=== PATIENT | female | born 1950 | race Caucasian/White ===

== ENCOUNTER → 2021-10-26 00:27 | Outpatient (CLI) | payer OTHER, SELFPAY ==
[2021-10-26 12:16] LABS: SARS-CoV-2 RNA PCR Negative
== END ==
PROVIDERS: PCP Internal Medicine; Visit Provider Internal Medicine Gastroenterology
DX: Z01.812 Encounter for preprocedural laboratory examination (principal); Z20.822 Contact with and (suspected) exposure to COVID-19
CPT/HCPCS: C9803; U0003; U0005

== ENCOUNTER 2021-10-29 00:03 | Day surgery (SDC) | payer OTHER, SELFPAY ==
[2021-10-17 13:10] VITALS: BMI 29.0
[2021-10-29 06:12] VITALS: BP 136/89; PULSE 98; RESP 18; TEMP 36.2; O2SAT 99; BMI 28.0
[2021-10-29] MEDS: LACTATED RINGERS 1,000 ML 150 ML IV CONT (06:29)
--- NOTE | 2021-10-29 07:08 | P.PNAN_ITS ---
Anes - Initial Pre Proc Eval Procedure: Operation Date: 10/29/21 07:30 Proposed Procedures p Colonoscopy - Jesus Munguia MD Date/Time: 10/29/21 07:08 Surgeon: Jesus Munguia MD Pre Op Diagnosis: hematochezia, PRISCILLA Patient Data Age: 71 Gender: F Height: 1.7 m Weight: 81.4 kg Last Vital Signs Temp 36.2 C L 10/29/21 06:12 Pulse 98 10/29/21 06:12 Resp 18 10/29/21 06:12 BP 136/89 10/29/21 06:12 Pulse Ox 99 10/29/21 06:12 Allergies Allergy/AdvReac Type Severity Reaction Status Date / Time latex Allergy Unknown Hives Verified 10/29/21 06:20 Home Medications Medication Instructions Recorded Confirmed Type hydrochlorothiazide 12.5 mg PO DAILY 10/17/21 10/29/21 History levothyroxine 75 mcg PO DAILY 10/17/21 10/29/21 History metoprolol succinate 100 mg PO DAILY 10/17/21 10/29/21 History Patient hx anesthesia problems: none Family hx anesthesia problems: none Results Review: All pre-operative results and documents have been reviewed as part of the pre-operative evaluation. REPLACED BY [facility] Past Medical History Medical History Hx of migraines Hypertension Hypothyroid Social History Social History Smoking status: Never smoker Alcohol intake: never Substance use: never Substance use type: does not use Living arrangements: with family Spiritual care concerns: No Anes - Eval Final PreProcedure Day of Procedure 10/29/21 07:08 Patient weight: overweight Heart: regular rate and rhythm Lungs: clear to auscultation Airway: Mallampati scale class II Neurological: alert and oriented Last oral intake: >/= 8 hours ASA classification: III Emergent: no Anesthetic plan: proceed Anesthesia type and monitoring: general GIVS and standard monitoring Results Review: All pre-operative results and documents have been reviewed as part of the pre-operative evaluation. Informed Consent: The patient's anesthetic plan and its attendant risks and benefits were discussed with the patient/family/POA. Questions were solicited and answers provided to the satisfaction of the patient/family/POA.
--- NOTE | 2021-10-29 07:22 | PM.HPGS ---
History of Present Illness History of Present Illness Consent: Risks, benefits, and alternatives have been discussed and questions answered. Patient agrees to proceed with procedure. Chief complaint: hematochezia, PRISCILLA Narrative: Lana Key is a 71 year old female here for first colonoscopy, found to have anemia with hb ~ 10 and also blood in stools. Review of Systems Constitutional: Constitutional: Denies headache(s) and Denies weakness Eyes: Eyes: Denies blurry vision ENT: Reports Normal hearing present, Denies headache(s) and Denies neck pain Cardiovascular: Cardiovascular: Denies chest pain and Denies dyspnea Respiratory: Respiratory: Denies dyspnea Gastrointestinal: Gastrointestinal: Reports no additional gastrointestinal complaints Genitourinary: Genitourinary: Denies dysuria Musculoskeletal: Musculoskeletal: Denies neck pain Integumentary/Breasts: Skin/Breast: Denies dry skin Neurologic: Reports Normal hearing present, Denies headache(s) and Denies weakness Psychiatric: Psychiatric: Denies anxiety Endocrine: Endocrine: Denies change in body appearance Hematologic/Lymphatic: Hematologic/Lymphatic: Denies easy bleeding Allergic/Immunologic: Allergic/Immunologic: Denies urticaria PMFSH Past Medical History Medical History (Updated 10/29/21 @ 07:23 by Jesus Munguia MD) Hematochezia Hx of migraines Hypertension Hypothyroid Iron deficiency anemia Social History Social History Smoking status: Never smoker Alcohol intake: never Substance use: never Substance use type: does not use Living arrangements: with family Spiritual care concerns: No Meds Home Medications and Allergies Home Medications Medication Instructions Recorded Confirmed Type hydrochlorothiazide 12.5 mg PO DAILY 10/17/21 10/29/21 History levothyroxine 75 mcg PO DAILY 10/17/21 10/29/21 History metoprolol succinate 100 mg PO DAILY 10/17/21 10/29/21 History Allergies Allergy/AdvReac Type Severity Reaction Status Date / Time latex Allergy Unknown Hives Verified 10/29/21 06:20 Vital Signs Vital Signs - 24 hr 10/29/21 06:12 Temperature 97.2 F L Pulse Rate 98 Respiratory Rate 18 Blood Pressure 136/89 Pulse Oximetry 99 Exam Const: General: comfortable and no acute distress HENMT: General nose exam: Normal nares present Eyes: General: appearance normal, both eyes and all related structures Neck: Neck: no JVD Resp: Auscultation: clear to auscultation bilaterally Cardio: Rate: regular rate Rhythm: regular rhythm GI: Inspection: non-distended GI Palp: Yes Soft to palpation Skin: General skin exam: normal color Neuro: General: gait normal Speech: normal speech Extrem: General: normal to inspection Psych: Mental Status: mental status grossly normal Assessment and Plan Assessment and plan (1) Hematochezia: Code(s): K92.1 - Melena Status: Acute Assessment and Plan: will proceed with colonoscopy (2) Iron deficiency anemia: Code(s): D50.9 - Iron deficiency anemia, unspecified Status: Acute
[2021-10-29 07:53] VITALS: BP 115/72; PULSE 71; RESP 16; O2SAT 95
[2021-10-29 08:03] VITALS: BP 108/73; PULSE 71; RESP 18; O2SAT 99
[2021-10-29 08:13] VITALS: BP 120/75; PULSE 76; RESP 20; O2SAT 99
--- NOTE | 2021-10-29 10:56 | SUR.PHASEII ---
Dr. Edin Newby office phone number and Scheduling number, for CT scan, provided to patient with discharge instructions.
== END 2021-10-29 08:32 | disposition home or self-care (01) ==
PROVIDERS: PCP Internal Medicine; Visit Provider Internal Medicine Gastroenterology
PROC: 0DJD8ZZ Inspection of Lower Intestinal Tract, Via Natural or Artificial Opening Endoscopic (ICD-10-PCS; CPT 45378; principal; 2021-10-29 07:30)
DX: K92.1 Melena (principal); C19 Malignant neoplasm of rectosigmoid junction; D50.9 Iron deficiency anemia, unspecified; I10 Essential (primary) hypertension; E03.9 Hypothyroidism, unspecified
CPT/HCPCS: 45380; 88305; C9803; J2704; J7120; U0003; U0005

== ENCOUNTER 2021-10-31 13:12 | Outpatient (CLI) | payer OTHER, SELFPAY ==
--- NOTE | ~2021-10-31 | CT_ITS ---
EXAMINATION: CT abdomen pelvis w con EXAM DATE: 10/31/2021 13:39 INDICATION: K62.89 - Other specified diseases of anus and rectum . Mass near rectum on colonoscopy. C olon cancer. TECHNIQUE: Spiral CT of the abdomen and pelvis was performed following intravenous injection of 100 m L Omnipaque 350. Axial, coronal and sagittal images of the abdomen and pelvis were reviewed. The do se-length product (DLP) for this examination was 504.24 mGy-cm. The exposure was tailored according to patient size (auto mA exposure control), and iterative reconstruction (ASIR) was used as additiona l dose reduction technique. There is no prior study for comparison. FINDINGS: There is right liver lobe lesion with incomplete peripheral nodular enhancement consistent with hemangioma measuring 2.3 cm. Adrenal glands, pancreas, spleen are unremarkable. Gallbladder is unremarkable. No biliary obstruction. Portal and splenic veins are patent. Kidneys enhance symmetr ically. There is no hydronephrosis. There is 4 mm right inferior calyceal stone. Probable bilateral renal peripelvic cysts. Punctate left nephrolithiasis. The uterus is anteverted and morphologically normal. The bladder is unremarkable. There is rectal mass measuring 6.6 cm in diameter. There are several round adjacent lymph nodes (see axial image 133). Largest of these measures 1.2 cm. There are some other lymph nodes higher up. The a ppendix is normal. There is small sliding gastroesophageal hiatal hernia. There is expected amount of colonic stool. No free intraperitoneal gas. The heart is normal in size. There are no pericar dial or pleural effusions. Left lower lobe calcified granuloma. There are no osteoblastic or osteol ytic lesions identified. IMPRESSION: 1. Rectal malignancy and adjacent, deep pelvic metastatic lymphadenopathy. 2. Bilateral nephrolithiasis. 3. Liver hemangioma. 4. Small hiatal hernia. Reviewed, dictated and finalized at location G.
[2021-10-31 13:31] LABS: Estimated Glomerular Filt Rate > 60
[2021-10-31 14:18] LABS: Hematocrit 30.6 % (37.0-47.0); Hemoglobin 9.2 g/dL (12.0-15.0); Mean Corpuscular HGB Conc 30.1 g/dl (32-36); Mean Corpuscular Hemoglobin 22.8 pg (26-34); Mean Corpuscular Volume 75.9 fl (80-100); Platelet Count Result 403 k/mm3 (150-375); Red Blood Count 4.03 M/mm3 (4.2-5.4); Red Cell Distribution Width 15.2 % (11.5-14.5); White Blood Count 7.1 K/mm3 (4.5-10.0)
[2021-10-31 16:52] LABS: Alanine Aminotransferase 17 U/L (4-35); Alkaline Phosphatase 100 U/L (38-126); Anion Gap 8 mmol/L (8-16); Aspartate Amino Transferase 29 U/L (14-36); Bilirubin,Total 0.3 mg/dL (0.2-1.3); Blood Urea Nitrogen 15 mg/dL (7-17); Calcium 8.9 mg/dL (8.4-10.2); Carbon Dioxide 27 mmol/L (22-30); Chloride 103 mmol/L (98-107); Estimated Glomerular Filt Rate > 60; Glucose 106 mg/dL (65-110); Potassium 3.6 mmol/L (3.4-5.0); Sodium 138 mmol/L (137-145)
== END 2021-10-31 13:13 | disposition home or self-care (01) ==
LOC: ANHIMG 13:14
PROVIDERS: PCP Internal Medicine; Visit Provider Internal Medicine Gastroenterology
DX: K62.89 Other specified diseases of anus and rectum (principal); K92.1 Melena; C20 Malignant neoplasm of rectum; C77.8 Secondary and unspecified malignant neoplasm of lymph nodes of multiple regions; N20.0 Calculus of kidney; R16.0 Hepatomegaly, not elsewhere classified; K44.9 Diaphragmatic hernia without obstruction or gangrene
CPT/HCPCS: 74177; 80053; 82378; 85027; Q9967

== ENCOUNTER 2021-12-18 00:56 | Day surgery (SDC) | payer OTHER, SELFPAY ==
--- NOTE | 2021-12-13 16:13 | PC.NURSE ---
Report to the Outpatient Waiting Room, entrance under the green pavilion located off [facility], at time __0600 on date _12/18/21 . OR Time: __30 . - You and your visitor will be asked a series of questions to screen for COVID 19 for your protection. - Only one visitor is allowed at this time. - The patient visitor is requested to leave or wait in car when not with patient. - A mask is required within the hospital. Patients may have clear liquids (water, carbonated beverages, clear teas, apple juice) until 3 hours prior to surgery with a maximum of 20 ounces. - No food from midnight until time of surgery - Infants may have breast milk until 4 hours before surgery, infant formula 6 hours prior to surgery. - Children will be allowed to drink immediately following surgery. If applicable, please bring a bottle or sippy cup to assist with drinking. Juice, water, soda, and popsicles are readily available. For infants on formula, please bring formula the day of surgery. Pacifiers are allowed. Take the following medications with a SIP of water the morning of surgery: ____LEVOTHYROXINE Medications to discontinue per physician __ALL VITAMINS AND SUPPLEMENTS 3 DAYS PRE OP Date to take last dose__12/14/21 Please no make-up, nail ukrainian, hairspray, perfume, deodorant, or body powder the day of surgery. No jewelry (including any body piercings) or valuables the day of surgery, leave them at home. Please take a shower or bath the night before, or the morning of, surgery with an antibacterial soap. Wear comfortable, loose fitting clothing. Children are encouraged to wear pajamas. - Jewelry must be removed prior to entering the operating room. Rings and piercings that are not removed may be cut off. - The hospital will not accept responsibility for valuables. - Please leave all valuables, including medications, at home the day of surgery. If you are going home after surgery, a licensed tram driver must drive you home. - NO public transportation without another adult. - We recommend that an adult stay with you for 24 hours following discharge. - We also recommend that you do not drive, make important decision, drink alcoholic beverages, or take any drugs that were not prescribed by your health care provider for at least 24 hours after your discharge time. For Pediatric surgeries, we recommend two adults accompany the child home (only one inside the building at this time). Follow any additional instructions given to you from your surgeon. If you or anyone in your household have experienced Covid symptoms in the past week, please notify your surgeon or the nurse liaison at the phone number below for possible testing. Telephone instructions given to __PATIENT and asked if any additional questions and then verbalized understanding. Patient advised to call surgeon office or pre surgery nurse liaison [phone] if any additional questions.
[2021-12-13 16:15] VITALS: BMI 27.2
--- NOTE | ~2021-12-18 | XR_ITS ---
XR chest port-a-cath/central DATE: 12/18/2021 08:32 INDICATION: Port-A-Cath placement, postoperative TECHNIQUE: Portable AP chest on 12/18/2021 at 0829 hours COMPARISON: None FINDINGS: Left subclavian Port-A-Cath catheter, tip overlying superior vena cava. No left pneumothora x pleural effusion. No pulmonary infiltrate or consolidation. Heart size appears within normal limits. Is aortic calcific ation and tortuosity. Diffuse osteopenia. IMPRESSION: Left subclavian Port-A-Cath catheter tip overlying superior vena cava No active cardiac pulmonary disease or pneumothorax Aortic atherosclerosis Reviewed, dictated and finalized at Location [facility]. Reviewed, dictated and finalized at location B. IMPRESSION: Left subclavian Port-A-Cath catheter tip overlying superior vena ca va No active cardiac pulmonary disease or pneumothorax Aortic atherosclerosis
--- NOTE | ~2021-12-18 | XR_ITS ---
EXAMINATION: XR fl guide central line place INDICATION: Port-A-Cath insertion TECHNIQUE: Three intraoperative fluoroscopic images are submitted for review. Total fluoroscopic time was 18.5 seconds. COMPARISON: None available FINDINGS: Fluoroscopic images demonstrate a left subclavian Port-A-Cath. The tip is followed as far a s the distal superior vena cava. Please refer to procedure note for full details. IMPRESSION: 1. Left subclavian Port-A-Cath insertion. Reviewed, dictated and finalized at location A.
[2021-12-18 06:09] VITALS: BP 128/79; PULSE 72; RESP 20; TEMP 36.1; O2SAT 97
--- NOTE | 2021-12-18 06:43 | P.PNAN_ITS ---
Anes - Initial Pre Proc Eval Procedure: Operation Date: 12/18/21 07:30 Proposed Procedures p Insertion Kimberley Cath - Leah Laurent MD Date/Time: 12/18/21 06:43 Surgeon: Leah Laurent MD Pre Op Diagnosis: rectal CA Patient Data Age: 71 Gender: F Height: 1.7 m Weight: 78.99 kg Allergies Allergy/AdvReac Type Severity Reaction Status Date / Time latex Allergy Unknown Hives Verified 12/13/21 15:58 Home Medications Medication Instructions Recorded Confirmed Type hydrochlorothiazide 12.5 mg PO DAILY 10/17/21 12/13/21 History levothyroxine 75 mcg PO DAILY 10/17/21 12/13/21 History metoprolol succinate 100 mg PO QPM 10/17/21 12/13/21 History ascorbic acid (vitamin C) 250 mg PO DAILY 12/13/21 12/13/21 History cholecalciferol (vitamin D3) 50 mcg PO DAILY 12/13/21 12/13/21 History cyanocobalamin (vitamin B-12) 1,000 mcg PO DAILY 12/13/21 12/13/21 History ferrous sulfate 325 mg PO DAILY 12/13/21 12/13/21 History multivitamin [Multi-Vitamin] 1 tablet PO DAILY 12/13/21 12/13/21 History Patient hx anesthesia problems: none Family hx anesthesia problems: none Results Review: All pre-operative results and documents have been reviewed as part of the pre-operative evaluation. [facility] Past Medical History Medical History Hematochezia Hx of migraines Hypertension Hypothyroid Iron deficiency anemia Rectal mass Surgical History Surgical History (Updated 12/18/21 @ 06:44 by Adrián Pal MD) H/O arthroscopic knee surgery H/O colonoscopy History of carpal tunnel surgery History of shoulder surgery Social History Social History Smoking status: Never smoker Alcohol intake: never Substance use: never Substance use type: does not use Living arrangements: with family Spiritual care concerns: No Anes - Eval Final PreProcedure Day of Procedure 12/18/21 06:43 Patient weight: overweight Heart: regular rate and rhythm Lungs: clear to auscultation Airway: Mallampati scale class II Neurological: alert and oriented Last oral intake: >/= 8 hours ASA classification: III Emergent: no Anesthetic plan: proceed Anesthesia type and monitoring: general GIVS and standard monitoring Results Review: All pre-operative results and documents have been reviewed as part of the pre-operative evaluation. Informed Consent: The patient's anesthetic plan and its attendant risks and benefits were discussed with the patient/family/POA. Questions were solicited and answers provided to the satisfaction of the patient/family/POA.
[2021-12-18] MEDS: LACTATED RINGERS 1,000 ML 30 ML IV CONT (06:55)
[2021-12-18] MEDS: KETOROLAC 15 MG/ML VIAL (*BKC) IV PUSH (07:07)
--- NOTE | 2021-12-18 07:27 | PM.IMHP ---
H&P: HPI History of Present Illness Date/Time: 12/18/21 07:27 Pt is a 71 y/o F c rectal cancer. Pt here for VAD placement. Pt denies previous central venous catheterization. Pt is right handed. Chief Complaint: rectal cancer Review of Systems Review of Systems: All systems reviewed & are unremarkable except as noted in HPI and below PMFSH Past Medical History Medical History Hematochezia Hx of migraines Hypertension Hypothyroid Iron deficiency anemia Rectal mass Surgical History Surgical History H/O arthroscopic knee surgery H/O colonoscopy History of carpal tunnel surgery History of shoulder surgery Social History Social History Smoking status: Never smoker Alcohol intake: never Substance use: never Substance use type: does not use Living arrangements: with family Spiritual care concerns: No Meds Home Medications and Allergies Home Medications Medication Instructions Recorded Confirmed Type hydrochlorothiazide 12.5 mg PO DAILY 10/17/21 12/18/21 History levothyroxine 75 mcg PO DAILY 10/17/21 12/18/21 History metoprolol succinate 100 mg PO QPM 10/17/21 12/18/21 History ascorbic acid (vitamin C) 250 mg PO DAILY 12/13/21 12/18/21 History cholecalciferol (vitamin D3) 50 mcg PO DAILY 12/13/21 12/18/21 History cyanocobalamin (vitamin B-12) 1,000 mcg PO DAILY 12/13/21 12/18/21 History ferrous sulfate 325 mg PO DAILY 12/13/21 12/18/21 History multivitamin [Multi-Vitamin] 1 tablet PO DAILY 12/13/21 12/18/21 History Allergies Allergy/AdvReac Type Severity Reaction Status Date / Time latex Allergy Unknown Hives Verified 12/18/21 06:51 Exam Const: General: cooperative, comfortable and no acute distress Nutritional Appearance: overweight Orientation/consciousness: patient oriented x3 Neck: Neck: normal visual inspection and full ROM Chest: Chest palpation & inspection: normal inspection of the chest Resp: Effort & Inspection: normal respiratory effort Auscultation: clear to auscultation bilaterally Cardio: Rate: regular rate Rhythm: regular rhythm GI: Inspection: normal to inspection GI Palp: No abdominal tenderness, Yes Soft to palpation and No Tenderness to palpation present (GI) Assessment and Plan Assessment and plan (1) Rectal cancer: Code(s): C20 - Malignant neoplasm of rectum Status: Acute Assessment and Plan: will place VAD in OR today
--- NOTE | 2021-12-18 07:30 | WPDHPUPDATE1 ---
History and Physical Update Update Date/Time: 12/18/21 07:30 History and Physical has been reviewed, including an updated exam of the patient. There are NO changes in the patient's condition. Risks, benefits, and alternatives have been discussed and questions answered. Patient agrees to proceed with procedure.
[2021-12-18 07:33] LABS: INR 1.1; Prothrombin Time 13.4 Seconds (11.1-14.7)
[2021-12-18 07:34] LABS: Partial Thromboplastin Time 24.8 SECONDS (22.3-36.8)
[2021-12-18] MEDS: HEPARIN SODIUM 5,000 UNITS/ML VIAL 5000 UNITS IRRIGATION (07:37)
[2021-12-18] MEDS: LIDO 1%/EPINEPHRINE/PF 1:200,000 30 ML VIAL 20 ML XX (07:37)
[2021-12-18] MEDS: ceFAZolin 2 GM/D5W 50 ML 2 GM/50 ML BAG IVPB (07:37)
[2021-12-18] MEDS: HEPARIN SODIUM, PORCINE 10,000 UNITS/10 ML VIAL 10000 UNITS IRRIGATION (08:10)
[2021-12-18 08:20] VITALS: BP 105/64; PULSE 67; RESP 14; O2SAT 95
--- NOTE | 2021-12-18 08:45 | W.PM.PROC2 ---
Procedure Note - Detailed Date of Procedure 12/18/21 Pre-op Diagnosis rectal CA Post-op Diagnosis Same Procedure Performed Placement of left subclavian venous access device under fluoroscopic guidance Surgeon Leah Laurent MD Anesthesia MAC and Local Indications 71 y/o F c rectal cancer necessitating access for chemotherapy Findings first stick L SCV Description of Procedure Patient was brought into the operating room and placed in the supine position. After adequate induction of mac anesthesia, the patient was prepped and draped in normal sterile fashion. Time-out was then done to verify the patient's identity, as well as the procedure being performed. I began by making a small incision in the left chest, I then gained access into the left subclavian vein with an 18 gauge needle. I then placed the guidewire into the vein and confirmed placement via fluoroscopic guidance. I then locally anesthetized the area in the left chest. I then enlarged the incision around the guidewire including making a subcutaneous pocket inferiorly to allow placement of the port itself. I then placed a dilating sheath over the guidewire into the left subclavian vein via sterile Seldinger technique. This was once again done and confirmed via fluoroscopic guidance. I then removed the dilator and the guidewire, now just leaving the sheath in the vein. I then fed the previously flushed catheter into the left subclavian vein under fluoroscopic guidance. At approximately 21 cm, the catheter was noted to be near the atrial caval junction. I then peeled away the sheath, now just leaving the catheter in the vein. I then was able to easily draw and flush from the catheter. The catheter was cut to fit and attached to the port itself. The port was placed into the previously made subcutaneous pocket and sutured in with 0 Ethibond suture. Final fluoroscopic view showed the termination of the catheter at the atrial caval junction with a nice smooth curvature back to the port itself. I was able to gain access to the port with a Harris needle and was able to easily draw and flush from the port. I then flushed 4 cc of a final heparin flush into the port. The incision was closed with 3 0 Vicryl suture in the subcutaneous tissue and the skin was closed with 4 O Monocryl subcuticular suture. Dermabond was then placed on wound. The patient tolerated the procedure well and will be sent to the recovery room in stable condition. Implants L SCV VAD Estimated Blood Loss 5 Drains No Packing No Pathology None sent Complications No immediate complications Condition Stable Disposition PACU
[2021-12-18 08:50] VITALS: BP 111/72; PULSE 72; RESP 14
[2021-12-18 09:20] VITALS: BP 107/65; PULSE 65; RESP 14
== END 2021-12-18 09:30 | disposition home or self-care (01) ==
PROVIDERS: PCP Internal Medicine; Visit Provider Surgery
PROC: (CPT 36561; principal; 2021-12-18 07:30)
DX: C20 Malignant neoplasm of rectum (principal); I10 Essential (primary) hypertension; E03.9 Hypothyroidism, unspecified; D50.9 Iron deficiency anemia, unspecified
CPT/HCPCS: 36561; 36415; 77001; 85610; 85730; C1788; J0690; J1644; J1885; J2250; J2405; J2704; J3010; J7030; J7120

== ENCOUNTER 2022-08-28 12:22 | Outpatient (CLI) | payer MEDICARE, SELFPAY ==
[2022-08-28 15:05] LABS: Anion Gap 7 mmol/L (8-16); Blood Urea Nitrogen 18 mg/dL (7-17); Calcium 9.3 mg/dL (8.4-10.2); Carbon Dioxide 30 mmol/L (22-30); Chloride 104 mmol/L (98-107); Estimated Glomerular Filt Rate > 60; Glucose 103 mg/dL (65-110); Potassium 4.1 mmol/L (3.4-5.0); Sodium 141 mmol/L (137-145)
[2022-08-28 15:21] LABS: INR 1.1; Prothrombin Time 14.1 Seconds (11.1-14.7)
[2022-08-28 15:22] LABS: Partial Thromboplastin Time 28.6 SECONDS (22.3-36.8)
== END 2022-08-28 12:23 | disposition home or self-care (01) ==
LOC: ANHSURGERY 12:25
PROVIDERS: Anesthesiology; PCP Family Medicine; Visit Provider Surgery
DX: Z51.81 Encounter for therapeutic drug level monitoring (principal); Z79.899 Other long term (current) drug therapy; Z79.01 Long term (current) use of anticoagulants
CPT/HCPCS: 36415; 80048; 85610; 85730

== ENCOUNTER 2022-09-01 00:05 | Day surgery (SDC) | payer MEDICARE, SELFPAY ==
--- NOTE | 2022-08-26 15:11 | PC.NURSE ---
PRE-OP INSTRUCTIONS, PLEASE READ CAREFULLY Report to the Outpatient Waiting Room, entrance under the green pavilion located off [facility], at time _1030_ on date _09/01/22_. Planned Procedure Time: _1230_. Time changes happen often and if your time is changed the preop area will call you the afternoon before. - You and your visitor will be asked to self-screen and do not enter if you have any COVID symptoms. - Only one visitor is requested with a max of two and NO children visitors are allowed at this time. - The patient visitor may be requested to leave or wait in car when not with patient due to distancing restrictions. - A mask is optional within the hospital. Patients may have clear liquids (water, carbonated beverages, clear teas, apple juice) until 3 hours prior to surgery (0930 AM) with a maximum of 20 ounces. - No food from midnight until time of surgery Take the following medications with a SIP of water the morning of surgery: _LEVOTHYROXINE, PAIN MED IF NEEDED_ Medications to discontinue _IBUPROFEN PER DR. FAYE'S INSTRUCTIONS_ Medications to discontinue per DR. GIL - _WARFARIN (COUMADIN) 3 DAYS PRIOR TO SURGERY, Date to take last dose 08/28/22_ Medications to discontinue per ANESTHESIA - _MULTIVITAMIN 3 DAYS PRIOR TO SURGERY, Date to take last dose 08/28/22_ Please no make-up, nail setswana, hairspray, perfume, deodorant, or body powder the day of surgery. No jewelry (including any body piercings) or valuables the day of surgery, leave them at home. Please take a shower or bath the night before, or the morning of, surgery with an antibacterial soap. Wear comfortable, loose fitting clothing. - Jewelry must be removed prior to entering the operating room. Rings and piercings that are not removed may be cut off. - The hospital will not accept responsibility for valuables. - Please leave all valuables, including medications, at home the day of surgery. If you are going home after surgery, a licensed stage driver must drive you home. - NO public transportation without another adult if you receive anesthesia. - We recommend that an adult stay with you for 24 hours following discharge. - We also recommend that you do not drive, make important decision, drink alcoholic beverages, or take any drugs that were not prescribed by your health care provider for at least 24 hours after your discharge time. Follow any additional instructions given to you from your surgeon. If you or anyone in your household have experienced Covid symptoms in the past week, please notify your surgeon or the nurse liaison at the phone number below for possible testing. Telephone instructions given to _PATIENT_and asked if any additional questions and then verbalized understanding. Patient advised to call surgeon office or pre surgery nurse liaison [phone] if any additional questions.
[2022-08-26 15:17] VITALS: BMI 27.6
--- NOTE | 2022-09-01 10:32 | PM.IMHP ---
H&P: HPI History of Present Illness Date/Time: 09/01/22 10:32 Chief Complaint: rectal cancer s/p treatment Narrative: Pt is a 71 y/o F s/p treatment of rectal cancer. Pt had L SCV VAD placed in 12/29 for access. Pt has small thrombus in SVC and has been of Eliqus. Pt otherwise has had no issues c VAD. Review of Systems Review of Systems: All systems reviewed & are unremarkable except as noted in HPI and below PMFSH Past Medical History Medical History Hematochezia History of rectal cancer Hx of migraines Hypertension Hypertension Hypothyroid Hypothyroidism Iron deficiency anemia Rectal mass Surgical History Surgical History H/O arthroscopic knee surgery H/O colonoscopy History of carpal tunnel surgery History of colon resection 07/18/22 History of shoulder surgery Family History Family History Mother Cerebrovascular accident Social History Social History Smoking status: Never smoker Second hand tobacco smoke exposure: No Alcohol intake: never Substance use: never Substance use type: does not use Lack of Transportation: No Lack of Food: Never True Current Housing: I Have Housing Concerned About Future Housing: No Difficulty Paying Gas/Electric Bills: No Difficulty Paying for Meds: No Currently Unemployed: No Education: High School Diploma/GED Difficulty w/ Childcare or Family Care: No Living arrangements: with family Occupation/Education: retired Gender identity (if verbalized by the patient): Female Sexual Orientation (if Verbalized by the Patient): Straight or Heterosexual Spiritual care concerns: No Agree to blood products: Yes Meds Home Medications and Allergies Home Medications Medication Instructions Recorded Confirmed Type ascorbic acid (vitamin C) 500 mg 250 mg PO DAILY 12/13/21 08/26/22 History tablet cholecalciferol (vitamin D3) 50 50 mcg PO DAILY 12/13/21 08/26/22 History mcg (2,000 unit) tablet cyanocobalamin (vitamin B-12) 1,000 mcg PO DAILY 12/13/21 08/26/22 History 1,000 mcg tablet multivitamin 1 tablet PO DAILY 12/13/21 08/26/22 History hydrochlorothiazide 12.5 mg tablet 12.5 mg PO DAILY #90 tabs 06/10/22 08/26/22 Rx levothyroxine 75 mcg tablet 75 mcg PO DAILY #90 tabs 06/10/22 08/26/22 Rx metoprolol succinate 100 mg 100 mg PO DAILY #90 tabs 06/10/22 08/26/22 Rx tablet,extended release 24 hr acetaminophen 500 mg capsule 1,000 mg PO Q6H PRN Pain 08/06/22 08/26/22 History calcium carbonate 600 mg calcium 600 mg PO DAILY 08/06/22 08/26/22 History (1,500 mg) tablet (Calcium) fexofenadine 180 mg tablet 180 mg PO DAILY 08/06/22 08/26/22 History gabapentin 300 mg capsule 300 mg PO QHS 08/06/22 08/26/22 History ibuprofen 600 mg tablet 600 mg PO Q8H PRN Pain 08/06/22 08/26/22 History omeprazole 20 mg capsule,delayed 20 mg PO DAILY 08/06/22 08/26/22 History release oxycodone 5 mg tablet 5 mg PO Q4H PRN Pain 08/06/22 08/26/22 History polyethylene glycol 3350 17 gram 17 g PO DAILY 08/06/22 08/26/22 History oral powder packet (Miralax) warfarin 1 mg tablet See Rx Instructions .Route 08/26/22 08/26/22 Rx .COMPLEX #30 tabs Allergies Allergy/AdvReac Type Severity Reaction Status Date / Time latex Allergy Unknown Hives Verified 08/26/22 14:54 Exam Const: General: cooperative, comfortable and no acute distress Chest: Other: L SCV VAD - C/D/I Resp: Auscultation: clear to auscultation bilaterally Cardio: Rate: regular rate Rhythm: regular rhythm GI: Inspection: normal to inspection GI Palp: Yes abdominal tenderness, Yes Soft to palpation, Yes Tenderness to palpation present (GI) and Yes Guarding due to palpation present (GI) Assessment and Plan Assessment and plan (1) Rectal cancer: Code(
--- NOTE | 2022-09-01 10:40 | WPDHPUPDATE1 ---
History and Physical Update Update Date/Time: 09/01/22 10:40 History and Physical has been reviewed, including an updated exam of the patient. There are NO changes in the patient's condition. Risks, benefits, and alternatives have been discussed and questions answered. Patient agrees to proceed with procedure.
[2022-09-01 11:19] VITALS: BP 144/79; PULSE 67; RESP 16; TEMP 36.6; O2SAT 98
[2022-09-01] MEDS: LACTATED RINGERS 1,000 ML 30 ML IV CONT (11:21)
--- NOTE | 2022-09-01 11:50 | WPDANESEPPF ---
Anes - Initial Pre Proc Eval Procedure: Operation Date: 09/01/22 12:30 Proposed Procedures p Removal Kimberley Cath - Leah Laurent MD Date/Time: 09/01/22 11:50 Surgeon: Leah Laurent MD Pre Op Diagnosis: Rectal Cancer Patient Data Age: 71 Gender: F Height: 1.7 m Weight: 79 kg Last Vital Signs Temp 98 F 09/01/22 11:19 Pulse 67 09/01/22 11:19 Resp 16 09/01/22 11:19 BP 144/79 H 09/01/22 11:19 Pulse Ox 98 09/01/22 11:19 O2 Del Method Room Air 09/01/22 11:19 Allergies Allergy/AdvReac Type Severity Reaction Status Date / Time latex Allergy Unknown Hives Verified 08/26/22 14:54 Home Medications Medication Instructions Recorded Confirmed Type ascorbic acid (vitamin C) 500 mg 250 mg PO DAILY 12/13/21 08/26/22 History tablet cholecalciferol (vitamin D3) 50 50 mcg PO DAILY 12/13/21 08/26/22 History mcg (2,000 unit) tablet cyanocobalamin (vitamin B-12) 1,000 mcg PO DAILY 12/13/21 08/26/22 History 1,000 mcg tablet multivitamin 1 tablet PO DAILY 12/13/21 08/26/22 History hydrochlorothiazide 12.5 mg tablet 12.5 mg PO DAILY #90 tabs 06/10/22 08/26/22 Rx levothyroxine 75 mcg tablet 75 mcg PO DAILY #90 tabs 06/10/22 08/26/22 Rx metoprolol succinate 100 mg 100 mg PO DAILY #90 tabs 06/10/22 08/26/22 Rx tablet,extended release 24 hr acetaminophen 500 mg capsule 1,000 mg PO Q6H PRN Pain 08/06/22 08/26/22 History calcium carbonate 600 mg calcium 600 mg PO DAILY 08/06/22 08/26/22 History (1,500 mg) tablet (Calcium) fexofenadine 180 mg tablet 180 mg PO DAILY 08/06/22 08/26/22 History gabapentin 300 mg capsule 300 mg PO QHS 08/06/22 08/26/22 History ibuprofen 600 mg tablet 600 mg PO Q8H PRN Pain 08/06/22 08/26/22 History omeprazole 20 mg capsule,delayed 20 mg PO DAILY 08/06/22 08/26/22 History release oxycodone 5 mg tablet 5 mg PO Q4H PRN Pain 08/06/22 08/26/22 History polyethylene glycol 3350 17 gram 17 g PO DAILY 08/06/22 08/26/22 History oral powder packet (Miralax) warfarin 1 mg tablet See Rx Instructions .Route 08/26/22 08/26/22 Rx .COMPLEX #30 tabs Patient hx anesthesia problems: none Family hx anesthesia problems: none Results Review: All pre-operative results and documents have been reviewed as part of the pre-operative evaluation. [facility] Past Medical History Medical History Hematochezia History of rectal cancer Hx of migraines Hypertension Hypertension Hypothyroid Hypothyroidism Iron deficiency anemia Rectal mass Surgical History Surgical History H/O arthroscopic knee surgery H/O colonoscopy History of carpal tunnel surgery History of colon resection 07/18/22 History of shoulder surgery Family History Family History Mother Cerebrovascular accident Social History Social History Smoking status: Never smoker Second hand tobacco smoke exposure: No Alcohol intake: never Substance use: never Substance use type: does not use Lack of Transportation: No Lack of Food: Never True Current Housing: I Have Housing Concerned About Future Housing: No Difficulty Paying Gas/Electric Bills: No Difficulty Paying for Meds: No Currently Unemployed: No Education: High School Diploma/GED Difficulty w/ Childcare or Family Care: No Living arrangements: with family Occupation/Education: retired Gender identity (if verbalized by the patient): Female Sexual Orientation (if Verbalized by the Patient): Straight or Heterosexual Spiritual care concerns: No Agree to blood products: Yes Anes - Eval Final PreProcedure Day of Procedure 09/01/22 11:50 Patient weight: normal Heart: regular rate and rhythm Lungs: clear to auscultation Airway: Mallampati scale class II Neurological: alert and oriented Last oral int
[2022-09-01] MEDS: ceFAZolin 2 GM/D5W 50 ML 2 GM/50 ML BAG IVPB (12:11)
[2022-09-01] MEDS: BUPIVACAINE/EPINEPHRINE 0.5% 30 ML VIAL INFILTRATE (12:25)
--- NOTE | 2022-09-01 12:31 | P.OP_ITS ---
Procedure Note - Detailed Date of Procedure 09/01/22 Pre-op Diagnosis rectal cancer s/p adjuvant treatment Post-op Diagnosis Same Procedure Performed removal L chest VAD Surgeon Leah Laurent MD Anesthesia MAC and Local Indications 71 y/o F s/p treatment for rectal cancer. Pt had L sided VAD placed in 12/29. Findings L SCV VAD Description of Procedure The patient was taken to the operating room and placed in the supine position. The patient was then prepped and draped in the normal sterile fashion. A time- out was then done to verify the patient's identity, as well as the procedure being performed. I began by localizing the area of the previously placed port in the left chest. After the area was adequately anesthetized, I made an incision through the previous incision to gain access to the port in the subcutaneous tissue. I was then able to identify the port and using dissection with the Bovie cautery, I was able to free the reservoir from the subcutaneous pocket. The reservoir was being held in by 2 sutures and these were subsequently cut. I was then able to remove the reservoir from the pocket. I then removed the catheter from the left subclavian vein in full. I then held pressure at the level the left subclavian vein for approximately 5 minutes. Hemostasis was noted and I irrigated the pocket. I then closed the subcutaneous tissue with 3-0 Vicryl suture. The skin was closed with 4-0 Monocryl subcuticular suture. Dermabond was placed on the wound. The patient tolerated the procedure well and was alert and awake in the operating room postoperative. The patient will be sent to the recovery room in stable condition. Estimated Blood Loss 5 Drains No Packing No Pathology None sent Complications No immediate complications Condition Stable Disposition PACU [facility] Billing Surgery - Charge Forward: Surgery Billing
[2022-09-01 12:40] VITALS: BP 137/75; PULSE 71; RESP 16; O2SAT 97
[2022-09-01 13:05] VITALS: BP 120/77; PULSE 68; RESP 16
== END 2022-09-01 13:30 | disposition home or self-care (01) ==
PROVIDERS: PCP Family Medicine; Visit Provider Surgery
PROC: (CPT 36589; principal; 2022-09-01 12:30)
DX: Z45.2 Encounter for adjustment and management of vascular access device (principal); Z85.048 Personal history of other malignant neoplasm of rectum, rectosigmoid junction, and anus; I10 Essential (primary) hypertension; E03.9 Hypothyroidism, unspecified
CPT/HCPCS: 36590; J0690; J2405; J2704; J7120

== ENCOUNTER 2025-01-24 01:04 | Day surgery (SDC) | payer MEDICARE, SELFPAY ==
[2025-01-10 14:07] VITALS: BMI 28.4
--- OUTSIDE RECORDS SUMMARY | 2025-01-24 01:07 | XMS_ITS ---
Author Organization [facility] Address [address] [place] [id number] Care Team Providers Care Postulant Name Role Phone Ronan Martinez DO Unavailable [phone] Edin Newby MD Unavailable [phone] Feng Davison MD Primary Care Provider [phone] Jesus Caban MD Unavailable + Donny Voss MD Unavailable Active Problems Problem Noted Date Diagnosed Date Pelvic abscess in female 04/09/2023 Pelvic fluid collection 11/24/2022 History of rectal cancer 08/21/[address] 08/21/2022 Thrombus 04/09/2022 Anal fissure 02/11/2022 Encounter for adjustment and management of unspecified implanted device 12/02/2021 Rectal cancer 11/05/2021 Cancer Staging:Clinical:Stage IIIB(cT3, cN2a, cM0) - Signed by Jonna Mi MD on 11/19/2021 Current Treatment and Therapy Plans No current plan information found. Past Treatment and Therapy Plans Oncology Chemotherapy Treatment Plan Name Start Date Discontinue Date Treatment Medications Discontinue Reason Plan Provider Cycles [id number]: (Fluorouracil / Leucovorin / Oxaliplatin) 14 Day Cycles - GI 01/08/2022 07/31/2022 fluorouracil (ADRUCIL)fluorou racil (ADRUCIL) infusion - for home infusion (ADRUCIL)leucovo rinleucovorin IVPB in 250 mLoxaliplatin (ELOXATIN)oxalip latin (ELOXATIN) IVPB Therapy Complete Ronan Martinez, 8 of 8 cycles started Radiation Treatments * Course [id number]_[id number]_202112/02/2021 - 12/06/2021 Treatment Period Energy Fraction Dose Fractions Total Dose Plans Planned RECTUM 12/02/2021 - 12/06/2021 700 5 / 3,500 Reference Points Delivered RECTUM 12/02/2021 - 12/06/2021 3,500 Lifetime Dose Tracking * Chemical Lifetime Dose Automatic Entry Manual Entr y Fluoro Time 3.8 minutes 3.8 minutes 0 minutes Air kerma at the reference point (Ka,r) 20 mGy 2 0 mGy 0 mGy DLP 3,520 mGycm 3,520 mGycm 0 mGycm
--- OUTSIDE RECORDS SUMMARY | 2025-01-24 01:08 | XMS_ITS | Referral Summary ---
Author Organization [facility] Address [facility] [place] [address] Care Team Providers Care Manager Management Name Role Phone Ronan Martinez DO Unavailable [phone] Edin Newby MD Unavailable [phone] Feng Davison MD Primary Care Provider [phone] Jesus Caban MD Unavailable + Donny Voss MD Unavailable [phone] Allergies Active Allergy Reactions Criticality Noted Date Comments Latex Rash Medium 06/30/2022 Medications hydroCHLOROthiaz yolanda (HYDRODIURIL) 25 mg tabletIndication s:hypertension Take 1 tablet (25 mg total) by mouth every morning Active levothyroxine (SYNTHROID) 75 mcg tabletIndication s:hypothyroidism Take 1 tablet (75 mcg total) by mouth 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 Active cyanocobalamin (Vitamin B-12) 500 mcg tabletIndication s:Prevention of Vitamin B12 Deficiency Take 1 tablet (500 mcg total) by mouth every morning Active cholecalciferol (VITAMIN D-3) 5,000 unit tabletIndication s:Prevention of Vitamin D Deficiency Take 1 tablet (5,000 Units total) by mouth every morning Active ascorbic acid (VITAMIN C) 500 mg tablet,chewableI ndications:Vitam in C Deficiency Take 1 tablet/chew tab (500 mg total) by mouth every morning Active omeprazole (PriLOSEC) 20 mg capsuleIndicatio ns:Stress Ulcer Prophylaxis Take 1 capsule (20 mg total) by mouth every morning Active calcium carbonate (OS-TAMIKO) 1,500 mg (600 mg elemental) tabletIndication s:Hypocalcemia Prevention Take 1 tablet (1,500 mg total) by mouth nightly Active metoprolol XL (TOPROL-XL) 100 mg 24 hr tabletIndication s:hypertension Take 1 tablet (100 mg total) by mouth nightly 2 Active MULTIVITAMIN ORAL Take 1 tablet by mouth every morning Active ibuprofen (ADVIL,MOTRIN) 600 mg tablet Take 1 tablet (600 mg total) by mouth 3 (three) times a day 21 tablet 2 Active Additional Information Patient taking differently:600 mg oralAs needed, Reported on 10/14/2024 cetirizine (ZyrTEC) 10 mg tablet Take 1 tablet (10 mg total) by mouth daily Active albuterol HFA (PROVENTIL HFA,VENTOLIN HFA,PROAIR HFA) 90 mcg/actuation inhaler Inhale 2 puffs every 6 (six) hours as needed 5 Active Active Problems Problem Noted Date Diagnosed Date Pelvic abscess in female 04/09/2023 Pelvic fluid collection 11/24/2022 History of rectal cancer 08/21/[address] 08/21/2022 Thrombus 04/09/2022 Anal fissure 02/11/2022 Encounter for adjustment and management of unspecified implanted device 12/02/2021 Rectal cancer 11/05/2021 Cancer Staging:Clinical:Stage IIIB(cT3, cN2a, cM0) - Signed by Jonna Mi MD on 11/19/2021 Social History Tobacco Use Types Packs/Day Years Used Date Smoking Tobacco: Never Passive Smoke Exposure: Never Smokeless Tobacco: Never Tobacco Cessation:Counseling Given: Not Answered AUDIT-C Answer Date Recorded Q1: How often do you have a drink containing alcohol? Never 04/10/2023 Q2: How many drinks containi ng alcohol do you have on a typical day when you are drinking? Patient does not drink 3 Q3: How often do you have si x or more drinks on one occasion? Never 04/10/2023 PHQ-2 Answer Date Recorded PHQ-2 Total Score (If total score is 3 or more points, staff should administer the PHQ-9) 0 07/18/2022 Personal Safety Answer Date Recorded Have you ever been in or are you currently in a harmful physical or emotional relationship or is someone making you feel afraid or unsafe? 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 Not on file Not on file Last Filed Vital Signs Vital Sign [place] Time Taken Comments Blood Pressure 166/90 10/14/2024 8:31 AM DOOR CAPTAIN Pulse 53 10/14/2024 8:31 AM DOOR CAPTAIN Temperature 36.7 C (98 F) 10/14/2024 8:31 AM DOOR CAPTAIN Respiratory Rate 18 10/14/2024 8:31 AM DOOR CAPTAIN Oxygen Saturation 96% 10/14/2024 8:31 AM DOOR CAPTAIN Inhaled Oxygen Concentration - - Weight 79.8 kg (176 lb) 10/14/2024 8:31 AM DOOR CAPTAIN n o shoes Height 165.1 cm (5' 5) 10/14/2024 8:31 AM DOOR CAPTAIN Body Mass Index 29.29 10/14/2024 8:31 AM DOOR CAPTAIN Plan of Treatment Not on file Medical Devices Implanted Type Area Tattoo And Body Artist Device Identifier Shelf Expiration Date Model / Serial / Lot [employer] Mesh Surgical Hernia Synthetic Rectangle Phasix 8x16cm Poly 4 Hydroxybutyrate [id number] - [id number] Implanted:Qty: 1 on 07/18/2022 by Edin Newby MD at [facility] N/A: Rectum [employer] Bard 03/06/2023 [id number] / / [id number] Insurance MEDICARE [facility] MEDICARE SUPPLEMENT MEDICARE [facility] MEDICARE SUPPLEMENT MEDICARE Advance Directives For more information, please contact: [phone] * Full Code (Latest Code Status on File) Date Activated Date Inactivated Comments 11/24/2022 1:29 PM 11/25/2022 7:13 PM * Full Code Date Activated Date Inactivated Comments 07/18/2022 4:22 PM 07/24/2022 6:31 PM * Full Code Date Activated Date Inactivated Comments 05/29/2022 6:45 AM 05/29/2022 12:43 PM Care Teams Manager Management Relationship Specialty Start Date End Date Feng Davison MD [facility] [place] [address] PCP - General Family Medicine 05/22/22 Ronan Martinez DO [address] [facility] MEDICAL ONCOLOGY, [facility] [address] [place] [address] Medical Oncologist/Hematolog ist Hematology and Oncology 12/03/21 Edin Newby MD [address] [facility] [id number] [place] [address] Surgeon General Surgery 12/03/21 Jesus Caban MD [address] [place] [address] Referring Physician Gastroenterology 08/13/22 Donny Voss MD [address] [facility] [address] [place] [address] Consulting Physician Vascular & Interven Rad 11/25/22
--- OUTSIDE RECORDS SUMMARY | 2025-01-24 01:08 | XMS_ITS | Clinical Summary ---
Author Organization [facility] Address [facility] [place] [address] Care Team Providers Care Marketing Compliance Manager Name Role Phone Ronan Martinez DO Unavailable [phone] Edin Newby MD Unavailable [phone] Feng Davison MD Primary Care Provider [phone] Jesus Caban MD Unavailable + Donny Voss MD Unavailable [phone] Allergies Active Allergy Reactions Criticality Noted Date Comments Latex Rash Medium 06/30/2022 Medications hydroCHLOROthiaz yolanda (HYDRODIURIL) 25 mg tabletIndication s:hypertension Take 1 tablet (25 mg total) by mouth every morning Active levothyroxine (SYNTHROID) 75 mcg tabletIndication s:hypothyroidism Take 1 tablet (75 mcg total) by mouth 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 Active cyanocobalamin (Vitamin B-12) 500 [...] Signed by Jonna Mi MD on 11/19/2021 Surgical History Surgery Date Site/Laterality Comments SECTION x2 KNEE ARTHROSCOPY left ROTATOR CUFF REPAIR right CARPAL TUNNEL RELEASE COLONOSCOPY ABDOMINOPERINEAL PROCTOCOLECTOMY 07/18/2022 COLOSTOMY 07/18/2022 COLON SURGERY IMAGE GUIDED DRAINAGE PERITO RICKY OR RETROPERITONEAL FLUID COLLECTION 11/24/2022 N/A ABSCESS CATHETER INJECTION 12/08/2022 N/A ABSCESS CATHETER INJECTION 12/29/2022 N/A ABSCESS CATHETER INJECTION 01/12/2023 N/A ABSCESS CATHETER INJECTION 01/26/2023 N/A ABSCESS CATHETER INJECTION 02/04/2023 N/A ABSCESS CATHETER INJECTION 02/11/2023 N/A Medical History Medical History Date Comments Hypertension Hypothyroidism Anemia Rectal cancer (HCC) GERD (gastroesophageal reflux disease) Thrombus SVC/port Family History Medical History Relation Name Comments Testicular cancer Brother Aneurysm Father Alzheimer's disease Mother Stroke Mother maternal aunt colon cancer Other maternal uncle colon ca Other Anesthesia problems Neg Hx Relation Name Status Comments Brother Alive Father Mother Other Social History Tobacco Use Types Packs/Day Years Used Date Smoking Tobacco: Never Passive Smoke Exposure: Never Smokeless Tobacco: Never Tobacco Cessation:Counseling Given: Not Answered AUDIT-C Answer Date Recorded Q1: How often do you have a drink containing alcohol? Never 04/10/2023 Q2: How many drinks containi ng alcohol do you have on a typical day when you are drinking? Patient does not drink Q3: How often do you have si [...] file Not on file Not on file Obstetrics History Last Filed Vital Signs Vital Sign [place] Time Taken Comments Blood Pressure 166/90 10/14/2024 8:31 AM BIOMETRIC FINGERPRINTING TECHNICIAN Pulse 53 10/14/2024 8:31 AM BIOMETRIC FINGERPRINTING TECHNICIAN Temperature 36.7 C (98 F) 10/14/2024 8:31 AM BIOMETRIC FINGERPRINTING TECHNICIAN Respiratory Rate 18 10/14/2024 8:31 AM BIOMETRIC FINGERPRINTING TECHNICIAN Oxygen Saturation 96% 10/14/2024 8:31 AM BIOMETRIC FINGERPRINTING TECHNICIAN Inhaled Oxygen Concentration - - Weight 79.8 kg (176 lb) 10/14/2024 8:31 AM BIOMETRIC FINGERPRINTING TECHNICIAN n o shoes Height 165.1 cm (5' 5) 10/14/2024 8:31 AM BIOMETRIC FINGERPRINTING TECHNICIAN Body Mass Index 29.29 10/14/2024 8:31 AM BIOMETRIC FINGERPRINTING TECHNICIAN Plan of Treatment Health Maintenance Due Date Last Done Comments Colon Cancer Screening-Colonoscopy 1952 Hepatitis C Screening 1950 DTaP/Tdap/Td Vaccine (1 - Tdap) 1963 Hepatitis B Screening 1970 Pneumococcal vaccine 65+ (1 of 1 - PCV) 2002 Zoster Vaccine (1 of 2) 2002 Well Visit 65+ 2017 Depression Screening 06/11/2023 06/11/2022, 06/11/20 22 Breast Cancer Screening-Mammogram 01/31/2024 023, 01/30/2023 Fall Risk Assessment 04/10/2024 04/10/2023, 11/20/19 Influenza Vaccine (Season Ended) 2025 07/28/20 12 Osteoporosis Screening-Bone Density Scan 07/16/2025 07/16/2023 Medical Devices Implanted Type Area Airline Manager Device Identifier Shelf Expiration Date Model / Serial / Lot [employer] R Bard Mesh Surgical Hernia Synthetic Rectangle Phasix 8x16cm Poly 4 Hydroxybutyrate [id number] - [id number] Implanted:Qty: 1 on 07/18/2022 by Edin Newby MD at [facility] N/A: Rectum [employer] Bard 03/06/2023 [id number] / / [id number] Insurance MEDICARE [facility] MEDICARE SUPPLEMENT MEDICARE [employer] MEDICARE SUPPLEMENT [place] [id number] MEDICARE Advance Directives For more information, please contact: [phone] * Full Code (Latest Code Status on File) Date Activated Date Inactivated Comments 11/24/2022 1:29 PM 11/25/2022 7:13 PM * Full Code Date Activated Date Inactivated Comments 07/18/2022 4:22 PM 07/24/2022 6:31 PM * Full Code Date Activated Date Inactivated Comments 05/29/2022 6:45 AM 05/29/2022 12:43 PM Care Teams Marketing Compliance Manager Relationship Specialty Start Date End Date Feng Davison MD [address] [place] [address] PCP - General Family Medicine 05/22/22 Ronan Martinez DO [address] [facility] MEDICAL [facility]Y, [address] [place] [address] Medical Oncologist/Hematolog ist Hematology and Oncology 12/03/21 Edin Newby MD [address] [facility] [phone] [place] [address] Surgeon General Surgery 12/03/21 Jesus Caban MD [address] [place] [address] Referring Physician Gastroenterology 08/13/22 Donny Voss MD [address] [facility] [address] [place] [address] Consulting Physician Vascular & Interven Rad 11/25/22
[2025-01-24 06:53] VITALS: BP 134/89; PULSE 71; RESP 18; TEMP 36.7; O2SAT 96
[2025-01-24] MEDS: LACTATED RINGERS 1,000 ML 150 ML IV CONT (07:01)
--- NOTE | 2025-01-24 07:34 | WPDANESEPPF ---
Anes - Initial Pre Proc Eval Procedure: Operation Date: 01/24/25 08:00 Proposed Procedures p Colonoscopy - Jesus Munguia MD Date/Time: 01/24/25 07:34 Surgeon: Jesus Munguia MD Pre Op Diagnosis: Malignant neoplasm of rectum Patient Data Age: 74 Gender: F Height: 1.68 m Weight: 79.6 kg Last Vital Signs Temp 36.7 C 01/24/25 06:53 Pulse 71 01/24/25 06:53 Resp 18 01/24/25 06:53 BP 134/89 01/24/25 06:53 Pulse Ox 96 01/24/25 06:53 O2 Del Method Room Air 01/24/25 06:53 Allergies Allergy/AdvReac Type Severity Reaction Status Date / Time latex Allergy Unknown Hives Verified 01/24/25 06:48 Home Medications ?Medication ?Instructions ?Recorded ?Confirmed ?Type ascorbic acid (vitamin C) 500 mg 250 mg PO DAILY 12/13/21 01/24/25 History tablet cholecalciferol (vitamin D3) 50 50 mcg PO DAILY 12/13/21 01/24/25 History mcg (2,000 unit) tablet cyanocobalamin (vitamin B-12) 1,000 mcg PO DAILY 12/13/21 01/24/25 History 1,000 mcg tablet multivitamin 1 tablet PO DAILY 12/13/21 01/24/25 History calcium carbonate (Calcium 600) 600 mg PO DAILY 08/06/22 01/24/25 History ibuprofen 600 mg tablet 600 mg PO Q8H PRN Pain 08/06/22 01/10/25 History omeprazole 20 mg capsule,delayed 20 mg PO DAILY 08/06/22 01/24/25 History release cetirizine 10 mg capsule (Zyrtec) 10 mg PO DAILY PRN allergy symptoms 12/15/23 01/24/25 History levothyroxine 75 mcg tablet See Rx Instructions .Route 10/03/24 01/24/25 Rx .COMPLEX #90 tabs metoprolol succinate 100 mg See Rx Instructions .Route 10/06/24 01/24/25 Rx tablet,extended release 24 hr .COMPLEX #90 tabs hydrochlorothiazide 25 mg tablet 25 mg PO DAILY #90 tabs 11/28/24 01/24/25 Rx Patient hx anesthesia problems: none Family hx anesthesia problems: none Results Review: All pre-operative results and documents have been reviewed as part of the pre-operative evaluation. [facility] Past Medical History Medical History History of rectal cancer Hypothyroidism Hypertension Rectal mass Iron deficiency anemia Hematochezia Hypothyroid Hypertension Hx of migraines Surgical History Surgical History History of colon resection 07/18/22 H/O colonoscopy History of carpal tunnel surgery History of shoulder surgery H/O arthroscopic knee surgery Family History Family History Mother Cerebrovascular accident Social History Social History Social History: 12/13/24 very confident with medical forms Smoking status: Never smoker Second hand tobacco smoke exposure: No Alcohol intake: never Substance use: never Substance use type: does not use Do You Feel Safe in your Home?: Yes Lack of Transportation: No Lack of Food: Never True Current Housing: I Have Housing Concerned About Future Housing: No Difficulty Paying Gas/Electric Bills: No Difficulty Paying for Meds: No Currently Unemployed: No Education: High School Diploma/GED Difficulty w/ Childcare or Family Care: No Living arrangements: with family Occupation/Education: retired Gender identity (if verbalized by the patient): Female Sexual Orientation (if Verbalized by the Patient): Straight or Heterosexual Spiritual care concerns: No Agree to blood products: Yes Anes - Eval Final PreProcedure Day of Procedure 01/24/25 07:34 Patient weight: overweight Heart: regular rate and rhythm Lungs: clear to auscultation Airway: Mallampati scale class II Neurological: alert and oriented Last oral intake: >/= 8 hours ASA classification: III Emergent: no Anesthetic plan: proceed Anesthesia type and monitoring: general GIVS and standard monitoring Results Review: All pre-operative results and documents have been reviewed as part of the pre-operative evaluation. Informed Consent: The patient's anesthetic plan and its attendant risks and benefits were discussed with the patient/family/POA. Questions were solicited and answers provided to the satisfaction of the patient/family/POA.
--- NOTE | 2025-01-24 07:46 | PM.HPGS ---
History of Present Illness History of Present Illness Consent: Risks, benefits, and alternatives have been discussed and questions answered. Patient agrees to proceed with procedure. Chief complaint: Malignant neoplasm of rectum Narrative: Lana Key is a 74 year old female with rectal cancer 2021 s/p surgery here for colonoscopy (on remission per recent CT scan) Review of Systems Review of Systems: All systems reviewed & are unremarkable except as noted in HPI and below PMFSH Past Medical History Medical History (Updated 01/24/25 @ 07:47 by Jesus Munguia MD) History of rectal cancer Hypothyroidism Hypertension Rectal mass Iron deficiency anemia Hematochezia Hypothyroid Hypertension Hx of migraines Surgical History Surgical History History of colon resection 07/18/22 H/O colonoscopy History of carpal tunnel surgery History of shoulder surgery H/O arthroscopic knee surgery Family History Family History Mother Cerebrovascular accident Social History Social History Social History: 12/13/24 very confident with medical forms Smoking status: Never smoker Second hand tobacco smoke exposure: No Alcohol intake: never Substance use: never Substance use type: does not use Do You Feel Safe in your Home?: Yes Lack of Transportation: No Lack of Food: Never True Current Housing: I Have Housing Concerned About Future Housing: No Difficulty Paying Gas/Electric Bills: No Difficulty Paying for Meds: No Currently Unemployed: No Education: High School Diploma/GED Difficulty w/ Childcare or Family Care: No Living arrangements: with family Occupation/Education: retired Gender identity (if verbalized by the patient): Female Sexual Orientation (if Verbalized by the Patient): Straight or Heterosexual Spiritual care concerns: No Agree to blood products: Yes Meds Home Medications and Allergies Home Medications ?Medication ?Instructions ?Recorded ?Confirmed ?Type ascorbic acid (vitamin C) 500 mg 250 mg PO DAILY 12/13/21 01/24/25 History tablet cholecalciferol (vitamin D3) 50 50 mcg PO DAILY 12/13/21 01/24/25 History mcg (2,000 unit) tablet cyanocobalamin (vitamin B-12) 1,000 mcg PO DAILY 12/13/21 01/24/25 History 1,000 mcg tablet multivitamin 1 tablet PO DAILY 12/13/21 01/24/25 History calcium carbonate (Calcium 600) 600 mg PO DAILY 08/06/22 01/24/25 History ibuprofen 600 mg tablet 600 mg PO Q8H PRN Pain 08/06/22 01/10/25 History omeprazole 20 mg capsule,delayed 20 mg PO DAILY 08/06/22 01/24/25 History release cetirizine 10 mg capsule (Zyrtec) 10 mg PO DAILY PRN allergy symptoms 12/15/23 01/24/25 History levothyroxine 75 mcg tablet See Rx Instructions .Route 10/03/24 01/24/25 Rx .COMPLEX #90 tabs metoprolol succinate 100 mg See Rx Instructions .Route 10/06/24 01/24/25 Rx tablet,extended release 24 hr .COMPLEX #90 tabs hydrochlorothiazide 25 mg tablet 25 mg PO DAILY #90 tabs 11/28/24 01/24/25 Rx Allergies Allergy/AdvReac Type Severity Reaction Status Date / Time latex Allergy Unknown Hives Verified 01/24/25 06:48 Vital Signs Vital Signs - 24 hr 01/24/25 06:53 Temperature 98.1 F Pulse Rate 71 Respiratory Rate 18 Blood Pressure 134/89 Pulse Oximetry 96 Oxygen Delivery Room Air Exam Const: General: comfortable and no acute distress HENMT: Face/Nose/Sinus: Normal nares present Eyes: General: appearance normal, both eyes and all related structures Neck: Neck: no JVD Resp: Auscultation: clear to auscultation bilaterally Cardio: Rate: regular rate Rhythm: regular rhythm GI: Inspection: non-distended GI Palp: Yes Soft to palpation Skin: General skin exam: normal color Neuro: Speech: normal speech Extrem: General: normal to inspection Psych: Mental Status: mental status grossly normal Assessment and Plan Assessment and plan (1) History of rectal cancer: Code(s): Z85.048 - Personal history of other malignant neoplasm of rectum, rectosigmoid junction, and anus Status: Acute Assessment and Plan: colonoscopy
[2025-01-24 08:00] VITALS: BP 110/70; PULSE 64; RESP 13; O2SAT 97
--- NOTE | 2025-01-24 08:00 | S_PTH ---
PATIENT: Lana Key LOC: [facility]#:[id number] AGE/SX: 74/F ROOM: RE01/24/[address]: Jesus Munguia MD : 1950 BED: DIS: 01/24/2025 SPEC #: [id number] RECD: 01/24/25 10:28 STATUS: SUKHJINDER RETrista #: [id number] GIL: 01/24/25 08:[address]: Jesus Munguia DEPT: [facility] Surgical RECD BY: Kandi Morales ENTERED: 01/24/25 10:29 SP TYPE: Surgical OTHR DR: Gris Horvath, ANNIE Tissues: A - Colon Polypectomy B - Colon Polypectomy Procedures: Hematoxylin and Eosin Stain Gross and Microscopic Level 4
[2025-01-24 08:10] VITALS: BP 139/84; PULSE 68; RESP 20; O2SAT 94
[2025-01-24 08:20] VITALS: BP 136/81; PULSE 64; RESP 20; O2SAT 96
== END 2025-01-24 08:27 | disposition home or self-care (01) ==
PROVIDERS: PCP Nurse Practitioner Family; Referring Provider Internal Medicine Medical Oncology; Visit Provider Internal Medicine Gastroenterology
PROC: 0DJD8ZZ Inspection of Lower Intestinal Tract, Via Natural or Artificial Opening Endoscopic (ICD-10-PCS; CPT 45378; principal; 2025-01-24 08:00)
DX: Z08 Encounter for follow-up examination after completed treatment for malignant neoplasm (principal); D12.0 Benign neoplasm of cecum; D12.2 Benign neoplasm of ascending colon; Z85.048 Personal history of other malignant neoplasm of rectum, rectosigmoid junction, and anus; Z93.3 Colostomy status
CPT/HCPCS: 44389; 44394; 88305; J2003; J2704; J7120